=== PATIENT | female | born 1955 | race African-American/Black ===

== ENCOUNTER 2017-12-17 11:45 | Emergency (ER) | payer MEDICAID ==
[~2017-12-17] VITALS: Ht 162.6 cm; Wt 50.0 kg
[2017-12-17 14:16] VITALS: BP 163/91
== END 2017-12-17 14:21 | disposition home or self-care (01) ==
LOC: ER 11:45
DX: R20.2 Paresthesia of skin (principal); I10 Essential (primary) hypertension; M19.90 Unspecified osteoarthritis, unspecified site; Z87.891 Personal history of nicotine dependence; Z98.890 Other specified postprocedural states
CPT/HCPCS: 99283

== ENCOUNTER 2018-03-07 12:02 | Emergency (ER) | payer MEDICAID ==
[~2018-03-07] VITALS: Ht 162.6 cm; Wt 57.7 kg
[2018-03-07] MEDS ORDERED: ACET-283 TP (12:56)
[2018-03-07] MEDS ORDERED: AM500 MT (12:56)
[2018-03-07] MEDS ORDERED: AMLO5TAB88 MT (12:56)
[2018-03-07] MEDS ORDERED: OMEGA XL (12:56)
[2018-03-07] MEDS ORDERED: MELO-106 MT (12:56)
[2018-03-07] MEDS ORDERED: CHOL500063 MT (12:56)
[2018-03-07] MEDS ORDERED: FERR325T6 MT (12:56)
[2018-03-07] MEDS ORDERED: BUPR100T13 MT (12:56)
[2018-03-07 19:24] VITALS: BP 132/94
== END 2018-03-07 19:31 | disposition home or self-care (01) ==
LOC: ER 13:45
DX: R59.1 Generalized enlarged lymph nodes (principal); H60.8X1 Other otitis externa, right ear
CPT/HCPCS: 99283

== ENCOUNTER 2019-08-15 11:12 | Emergency (ER) | payer MEDICAID ==
[~2019-08-15] VITALS: Ht 162.6 cm; Wt 60.0 kg
[~2019-08-15 11:12] MED LIST: ACET-283 TP; AMLO5TAB88 MT; AMOX-494 MT; BUPR100T13 MT; CHOL500063 MT; FERR325T6 MT; MELO-106 MT; OMEGA XL
[2019-08-15] MEDS ORDERED: KETOROLAC 60MG/2ML VIAL IM ONE (11:45)
[2019-08-15 13:17] VITALS: BP 145/78
== END 2019-08-15 13:17 | disposition home or self-care (01) ==
LOC: ER 12:21
DX: M25.552 Pain in left hip (principal); M16.11 Unilateral primary osteoarthritis, right hip; I10 Essential (primary) hypertension
CPT/HCPCS: 73502; 96372; 99283; J1885

== ENCOUNTER 2019-11-08 22:32 | Emergency (ER) | payer MEDICAID ==
[~2019-11-08] VITALS: Ht 160 cm; Wt 59.0 kg
[2019-11-08] MEDS ORDERED: IBUPROFEN 400MG TABLET PO ONE (23:30)
[2019-11-08] MEDS ORDERED: ONDANSETRON 4MG ODT PO ONE (23:30)
[2019-11-08] MEDS ORDERED: MORPHINE SULFATE 10 MG/ML CPJ IM ONE (23:30)
[2019-11-09 00:53] VITALS: BP 143/97
== END 2019-11-09 01:09 | disposition home or self-care (01) ==
LOC: ER 22:32
DX: M25.551 Pain in right hip (principal); M19.90 Unspecified osteoarthritis, unspecified site; F17.210 Nicotine dependence, cigarettes, uncomplicated; Z98.890 Other specified postprocedural states
CPT/HCPCS: 73502; 96372; 99283; J2270; Q0162

== ENCOUNTER 2019-12-20 22:39 | Emergency (ER) | payer MEDICAID ==
[~2019-12-20] VITALS: Ht 162.6 cm; Wt 59.0 kg
[2019-12-20 22:41] VITALS: BP 153/83
[2019-12-20] MEDS ORDERED: KETOROLAC 30MG/ML VIAL IM ONE (23:15)
== END 2019-12-21 00:40 | disposition home or self-care (01) ==
LOC: ER 22:39
DX: M25.851 Other specified joint disorders, right hip (principal); I10 Essential (primary) hypertension; M19.90 Unspecified osteoarthritis, unspecified site; Z98.890 Other specified postprocedural states
CPT/HCPCS: 96372; 99283; J1885

== ENCOUNTER 2021-08-03 12:22 | Emergency (ER) | payer MEDICARE ==
[~2021-08-03] VITALS: Ht 162.6 cm; Wt 57.0 kg
[2021-08-03 14:00] LABS: BASOPHILS % 0.1 % (0.0-2.0); EOSINOPHILS % 0.4 % (0.0-5.0); HEMATOCRIT. 29.2 % (36.0-48.0); HEMOGLOBIN. 9.6 g/dL (12.0-16.0); LYMPHOCYTES % 18.5 % (20.0-50.0); MEAN CORPUSCULAR HEMOGLOBIN 37.1 pg (28.0-32.0); MEAN CORPUSCULAR VOLUME 112.5 fL (81.0-99.0); MEAN PLATELET VOLUME 7.9 fl (7.4-10.4); PLATELET 226 x1000/uL (130-400); RED BLOOD CELL COUNT 2.59 mill/uL (4.2-5.4); RED CELL DISTRIBUTION WIDTH 21.8 % (11.6-14.6)
[2021-08-03 14:12] LABS: CHLORIDE 108 mEq/L (98-107)
[2021-08-03 14:30] LABS: PLATELET ESTIMATE NORMAL
[2021-08-03 16:10] VITALS: BP 143/60
== END 2021-08-03 16:11 | disposition home or self-care (01) ==
LOC: ER 12:22
DX: R07.89 Other chest pain (principal); R20.0 Anesthesia of skin; I10 Essential (primary) hypertension; M19.90 Unspecified osteoarthritis, unspecified site; Z98.890 Other specified postprocedural states
CPT/HCPCS: 36415; 71045; 80048; 84484; 85025; 85379; 93005; 99285

== ENCOUNTER 2022-09-19 20:45 | Emergency (ER) | payer MEDICARE, MEDICAID ==
[~2022-09-19] VITALS: Ht 162.6 cm; Wt 58.0 kg
[2022-09-19 21:03] VITALS: BP 113/74; PULSE 131; RESP 16; TEMP 98.4; O2SAT 94
[2022-09-19 21:36] LABS: HEMATOCRIT 35.4 % (36.0-48.0); HEMOGLOBIN 11.8 g/dL (12.0-16.0); MEAN CORPUSCULAR HEMOGLOBIN 30.6 pg (28.0-32.0); MEAN CORPUSCULAR HGB CONC 33.3 g/dL (31.0-37.0); PLATELET 377 x1000/uL (130-400); RED BLOOD CELL COUNT 3.85 mill/uL (4.2-5.4); RED CELL DISTRIBUTION WIDTH 14.2 % (11.6-14.6); WHITE BLOOD COUNT 9.6 x1000/uL (4.5-11.0)
[2022-09-19 21:39] LABS: CHLORIDE 105 mEq/L (98-107); INDEX HEMOLYSI 1 (1-3); INDEX ICTERIC 1 (1-4); INDEX LIPEMIC 1 (1-3); POTASSIUM 3.2 mEq/L (3.5-5.1); SODIUM 138 mEq/L (136-145)
[2022-09-19 21:47] LABS: ALANINE AMINOTRANSFERASE 21 IU/L (13-61); ALBUMIN 3.1 g/dL (3.4-5.0); ASPARTATE AMINOTRANSFERASE 18 IU/L (15-37); BILIRUBIN TOTAL 0.4 mg/dL (0.1-1.0); CALCIUM 9.6 mg/dL (8.5-10.1); CARBON DIOXIDE 25 mEq/L (21-32); CREATININE 0.7 mg/dL (0.6-1.3); GLUCOSE 128 mg/dL (70-105); PROTEIN TOTAL 8.1 g/dL (6.0-8.3); UREA NITROGEN BLOOD 9 mg/dL (7-21)
[2022-09-19 23:35] LABS: CLARITY URINE CLOUDY (CLEAR); COLOR URINE ORANGE (YELLOW); GLUCOSE URINE NEGATIVE (NEGATIVE); KETONES URINE TRACE (NEGATIVE); LEUKOCYTE ESTERASE URINE 1+ (NEGATIVE); NITRITE URINE POSITIVE (NEGATIVE); OCCULT BLOOD URINE 3+ (NEGATIVE); PH URINE 5.5 (4.5-8.0); PROTEIN URINE 2+ (NEGATIVE); SPECIFIC GRAVITY URINE 1.029 (1.005-1.030)
[2022-09-20 00:12] LABS: BACTERIA URINE 1+; RBC URINE TNTC /hpf (0-2); SQUAMOUS EPITHELIAL CELL URINE 1+ /lpf (RARE/1+); WBC URINE 0-2 /hpf (0-2)
[2022-09-20] MEDS ORDERED: NITR-87 MT (03:16)
[2022-09-20] MEDS ORDERED: CIPR250S3 MT (03:24)
== END 2022-09-20 03:33 | disposition home or self-care (01) ==
LOC: ER 20:45
DX: N39.0 Urinary tract infection, site not specified (principal)
CPT/HCPCS: 36415; 80053; 81003; 85027; 86850; 86900; 99283

== ENCOUNTER 2022-10-11 22:11 | Emergency (ER) | payer MEDICARE, MEDICAID ==
[~2022-10-11] VITALS: Ht 162.6 cm; Wt 55.0 kg
[~2022-10-11 22:11] MED LIST changes: +CIPR250S3 MT
[2022-10-11 22:53] VITALS: O2SAT 95
[2022-10-11 23:34] LABS: BASOPHILS % 0.2 % (0.0-2.0); EOSINOPHILS % 1.5 % (0.0-5.0); HEMATOCRIT. 34.6 % (36.0-48.0); HEMOGLOBIN. 11.6 g/dL (12.0-16.0); LYMPHOCYTES % 26.3 % (20.0-50.0); MEAN CORPUSCULAR HEMOGLOBIN 30.6 pg (28.0-32.0); MEAN CORPUSCULAR HGB CONC 33.4 g/dL (31.0-37.0); MEAN CORPUSCULAR VOLUME 91.5 fL (81.0-99.0); MONOCYTES % 4.7 % (2.0-8.0); NEUTROPHILS % 67.3 % (40.0-76.0); PLATELET 281 x1000/uL (130-400); RED BLOOD CELL COUNT 3.78 mill/uL (4.2-5.4); RED CELL DISTRIBUTION WIDTH 16.2 % (11.6-14.6); WHITE BLOOD COUNT 10.3 x1000/uL (4.5-11.0)
[2022-10-11 23:45] LABS: CHLORIDE 101 mEq/L (98-107); INDEX HEMOLYSI 1 (1-3); INDEX ICTERIC 1 (1-4); INDEX LIPEMIC 1 (1-3); POTASSIUM 3.7 mEq/L (3.5-5.1); SODIUM 136 mEq/L (136-145)
[2022-10-11 23:54] LABS: ALANINE AMINOTRANSFERASE 19 IU/L (13-61); ALBUMIN 3.2 g/dL (3.4-5.0); ASPARTATE AMINOTRANSFERASE 23 IU/L (15-37); BILIRUBIN TOTAL 0.2 mg/dL (0.1-1.0); CALCIUM 8.7 mg/dL (8.5-10.1); CARBON DIOXIDE 27 mEq/L (21-32); CREATININE 0.7 mg/dL (0.6-1.3); GLUCOSE 110 mg/dL (70-105); PROTEIN TOTAL 8.2 g/dL (6.0-8.3); UREA NITROGEN BLOOD 7 mg/dL (7-21)
[2022-10-11 23:59] LABS: TROPONIN I HIGH SENSITIVITY < 4 ng/L (<54)
[2022-10-12] MEDS ORDERED: KETOROLAC 60MG/2ML VIAL IM ONE (05:45)
[2022-10-12 06:00] VITALS: BP 133/79; PULSE 91; RESP 16; TEMP 98
[2022-10-12] MEDS ORDERED: IBUP-2029 MT (07:16)
[2022-10-12] MEDS ORDERED: GABA300C MT (07:16)
== END 2022-10-12 07:36 | disposition home or self-care (01) ==
LOC: ER 22:11
DX: M25.551 Pain in right hip (principal); G62.9 Polyneuropathy, unspecified; I10 Essential (primary) hypertension; Z79.899 Other long term (current) drug therapy
CPT/HCPCS: 99285; 71045; 80053; 85025; 84484; 36415; 93005; 73502; 96372; J1885

== ENCOUNTER 2023-04-11 12:39 | Emergency (ER) | payer MEDICARE, MEDICAID ==
[~2023-04-11] VITALS: Ht 165.1 cm; Wt 71.0 kg
[~2023-04-11 12:39] MED LIST changes: +GABA300C MT; +IBUP-2029 MT
[2023-04-11] MEDS: SODIUM CHLORIDE 0.9% 1,000 ML IV ONE (14:52)
[2023-04-11 16:08] LABS: ALANINE AMINOTRANSFERASE 7 IU/L (10-49); ALBUMIN 4.3 g/dL (3.2-4.8); ASPARTATE AMINOTRANSFERASE 19 IU/L (<34); BILIRUBIN TOTAL < 0.2 mg/dL (0.1-1.0); CALCIUM 9.4 mg/dL (8.7-10.4); CARBON DIOXIDE 28 mEq/L (21-32); CHLORIDE 104 mEq/L (98-107); CREATININE 0.9 mg/dL (0.6-1.0); GLUCOSE 96 mg/dL (70-105); POTASSIUM 2.9 mEq/L (3.5-5.1); PROTEIN TOTAL 7.5 g/dL (6.0-8.3); SODIUM 138 mEq/L (136-145); UREA NITROGEN BLOOD 8 mg/dL (9-23)
[2023-04-11] MEDS: POTASSIUM CHLORIDE 20MEQ TABLET SR PO ONE (16:44)
[2023-04-11 16:50] VITALS: BP 148/89; PULSE 92; RESP 18; TEMP 98.1
== END 2023-04-11 16:54 | disposition home or self-care (01) ==
LOC: ER 12:39
DX: M16.12 Unilateral primary osteoarthritis, left hip (principal); I10 Essential (primary) hypertension; E87.6 Hypokalemia; G62.9 Polyneuropathy, unspecified; Z79.899 Other long term (current) drug therapy; Z98.890 Other specified postprocedural states; W01.0XXA Fall on same level from slipping, tripping and stumbling without subsequent striking against object, initial encounter; Y93.89 Activity, other specified; Y92.89 Other specified places as the place of occurrence of the external cause; Y99.8 Other external cause status
CPT/HCPCS: 99284; 74176; 71045; 80053; 36415; 73502; J7030

== ENCOUNTER 2024-01-07 13:07 | Emergency (ER) | payer MEDICARE, MEDICAID ==
[~2024-01-07] VITALS: Ht 162.6 cm; Wt 65.0 kg
[2024-01-07 13:23] VITALS: TEMP 98.9; O2SAT 100
[2024-01-07 16:15] VITALS: BP 147/99; PULSE 90; RESP 16; O2SAT 98
== END 2024-01-07 16:19 | disposition home or self-care (01) ==
LOC: ER 13:07
DX: S82.832A Other fracture of upper and lower end of left fibula, initial encounter for closed fracture (principal); I10 Essential (primary) hypertension; Z79.899 Other long term (current) drug therapy; Z98.890 Other specified postprocedural states; X50.1XXA Overexertion from prolonged static or awkward postures, initial encounter; X58.XXXA Exposure to other specified factors, initial encounter; Y93.89 Activity, other specified; Y92.89 Other specified places as the place of occurrence of the external cause; Y99.8 Other external cause status
CPT/HCPCS: 29515; 73610; 99283

== ENCOUNTER 2024-05-30 09:58 | Emergency (ER) | payer MEDICARE, MEDICAID ==
[~2024-05-30] VITALS: Ht 160 cm; Wt 58.9 kg
[2024-05-30 10:18] VITALS: O2SAT 98
[2024-05-30] MEDS ORDERED: KETO10TA2 MT (11:10)
[2024-05-30] MEDS: KETOROLAC 30MG/ML VIAL IM STA (11:44)
[2024-05-30] MEDS: ACETAMINOPHEN 325MG TABLET PO STA (11:45)
[2024-05-30 12:35] VITALS: BP 130/72; PULSE 80; RESP 16; TEMP 36.7; O2SAT 98
== END 2024-05-30 12:35 | disposition home or self-care (01) ==
LOC: ER 09:58
DX: M79.2 Neuralgia and neuritis, unspecified (principal); I10 Essential (primary) hypertension; M19.90 Unspecified osteoarthritis, unspecified site; Z96.649 Presence of unspecified artificial hip joint; Z79.1 Long term (current) use of non-steroidal anti-inflammatories (NSAID); Z79.899 Other long term (current) drug therapy; Z98.890 Other specified postprocedural states; X50.1XXA Overexertion from prolonged static or awkward postures, initial encounter; Y93.89 Activity, other specified; Y92.89 Other specified places as the place of occurrence of the external cause; Y99.8 Other external cause status
CPT/HCPCS: 99283; 96372; J1885

== ENCOUNTER 2025-01-01 12:18 | Emergency (ER) | payer MEDICARE, MEDICAID ==
[~2025-01-01] VITALS: Ht 167.6 cm; Wt 66.0 kg
[~2025-01-01 12:18] MED LIST changes: +IBUP-1455 MT; -IBUP-2029 MT; +KETO10TA2 MT
[2025-01-01 12:28] VITALS: TEMP 37.1; O2SAT 100
[2025-01-01] MEDS: METHOCARBAMOL 500MG TABLET PO ONE (14:00)
[2025-01-01] MEDS: KETOROLAC 30MG/ML VIAL IM ONE (14:00)
[2025-01-01] MEDS: ACETAMINOPHEN 325MG TABLET PO ONE (14:00)
[2025-01-01] MEDS: LIDOCAINE 5% PATCH TOP SCH (14:00)
[2025-01-01] MEDS ORDERED: LIDO700A30 TP (14:59)
[2025-01-01 15:23] VITALS: BP 158/78; PULSE 76; RESP 18; O2SAT 100
== END 2025-01-01 15:30 | disposition home or self-care (01) ==
LOC: ER 12:18
DX: G89.29 Other chronic pain (principal); M54.50 Low back pain, unspecified; I10 Essential (primary) hypertension; M19.90 Unspecified osteoarthritis, unspecified site; Z79.1 Long term (current) use of non-steroidal anti-inflammatories (NSAID); Z96.649 Presence of unspecified artificial hip joint
CPT/HCPCS: 99284; 96372; J1885